=== PATIENT | female | born 1975 | race Caucasian/White ===

== ENCOUNTER 2020-06-01 15:35 | Emergency (ER) | payer MEDICAID, OTHER ==
[~2020-06-01] VITALS: Ht 162.6 cm; Wt 105.1 kg
[2020-06-01] MEDS ORDERED: LIDOCAINE-MPF 1%, 5ML ONE (16:57)
[2020-06-01] MEDS ORDERED: BUPIVACAINE 0.25% ONE (16:57)
[2020-06-01 17:09] VITALS: BP 149/78
--- NOTE | 2020-06-01 17:13 | NUR ---
PT TO BR INDEPENDENTLY WITH A STEDY GAIT.
== END 2020-06-01 18:02 | disposition home or self-care (01) ==
LOC: ED 17:55
DX: S52.501A Unspecified fracture of the lower end of right radius, initial encounter for closed fracture (principal); W19.XXXA Unspecified fall, initial encounter; Y93.89 Activity, other specified; Y92.69 Other specified industrial and construction area as the place of occurrence of the external cause; Y99.8 Other external cause status
CPT/HCPCS: 25605; 99284